=== PATIENT | female | born 1945 | race Caucasian/White ===

== ENCOUNTER 2018-04-21 13:31 | Inpatient (IN) | payer MEDICARE, BC ==
[~2018-04-21] VITALS: Ht 167.6 cm; Wt 123.0 kg
[2018-04-21] VITALS (10 sets, daily range): BP systolic 112–143; BP diastolic 49–69
[~2018-04-21 13:31] MED LIST: ULTRAM50 M1 PO
[2018-04-21] MEDS ORDERED: ARTIFI TEAR1 OU (13:56)
[2018-04-21] MEDS ORDERED: CARVEDILOL6.25 MG PO (13:57)
[2018-04-21] MEDS ORDERED: CINNAMON500 MG PO (13:58)
[2018-04-21] MEDS ORDERED: FISH OIL1000 MG PO (13:58)
[2018-04-21 14:00] LABS: HEMATOCRIT 41.2 % (37.0-47.0); HEMOGLOBIN 13.4 g/dl (12.0-16.0); IMMATURE GRANULOCYTES 0.3 % (0.0-5.0); MEAN CELL VOLUME 97.9 fL CALC (80.0-100.0); MEAN CORPUSCULAR HGB 31.8 pG CALC (26.0-32.0); MEAN CORPUSCULAR HGB CONC 32.5 g/L CALC (32.0-36.0); NEUT# 2.73 thou/uL (2.00-7.15); RED BLOOD COUNT 4.21 mill/uL (4.20-5.60); RED CELL DISTRI WIDTH 13.9 % (11.5-15.5)
[2018-04-21] MEDS ORDERED: FLONASE AL50 MCG/ACT NAB (14:00)
[2018-04-21] MEDS ORDERED: OMEPRAZOLE10 MG PO (14:00)
[2018-04-21] MEDS ORDERED: MULTI VIT PO (14:01)
[2018-04-21] MEDS ORDERED: SIMVASTATIN20 MG PO (14:01)
[2018-04-21] MEDS ORDERED: VITAMIN B-12500 MCG PO (14:02)
[2018-04-21] MEDS ORDERED: MECLIZINE25 MG PO (14:02)
[2018-04-21] MEDS ORDERED: FUROSEMIDE20 MG PO (14:03)
[2018-04-21] MEDS ORDERED: VITAMIN D PO (14:03)
[2018-04-21] MEDS ORDERED: KLOR-CON 1010 MEQ PO (14:04)
[2018-04-21] MEDS ORDERED: Levaquin PO (14:04)
[2018-04-21 14:16] LABS: ALBUMIN 4.3 g/dL (3.2-5.0); ALKALINE PHOSPHATASE 99 u/l (38-126); ANION GAP 15 (6-22 (CALC)); BILIRUBIN, TOTAL 0.8 mg/dL (0.0-1.4); BUN 16 mg/dL (8-23); BUN/CREATININE RATIO 22 (12-20 (CALC)); CARBON DIOXIDE 24 mmol/l (22-30); CHLORIDE 107 mmol/l (95-108); CREATININE 0.7 mg/dL (0.5-1.0); GFR > 60 ML/MIN (>=60 (CALC)); GFR FOR AFR.AMER. > 60 ML/MIN (>=60 (CALC)); POTASSIUM 3.9 mmol/l (3.5-5.1); SGOT/AST 23 u/l (9-36); SODIUM 142 mmol/l (137-146); TOTAL PROTEIN 7.8 g/dL (6.3-8.2)
[2018-04-21 14:19] LABS: D-DIMER 1.91 mg/L (0.19-0.60); PROTHROMBIN TIME 10.6 SECONDS (9.0-12.5)
[2018-04-21 16:44] LABS: URINE BILIRUBIN - DIPSTICK NEGATIVE (NEGATIVE); URINE BLOOD DIPSTICK NEGATIVE (NEGATIVE); URINE COLOR YELLOW; URINE GLUCOSE - DIPSTICK NEGATIVE (NEGATIVE); URINE KETONE TRACE mg/dL (NEGATIVE); URINE LEUK ESTERASE NEGATIVE (Negative); URINE NITRITE - DIPSTICK NEGATIVE (Negative); URINE PH 6.5 (4.5-8.0); URINE PROTEIN - DIPSTICK TRACE mg/dL (NEG-TRACE); URINE SPECIFIC GRAVITY >=1.030; URINE UROBILINOGEN - DIPSTICK 0.2 E.U./dL (0.2)
[2018-04-21 16:45] LABS: URINE CLARITY CLEAR
[2018-04-22] VITALS (22 sets, daily range): BP systolic 91–138; BP diastolic 44–75
[2018-04-22 03:37] LABS: HEMATOCRIT 38.6 % (37.0-47.0); HEMOGLOBIN 12.6 g/dl (12.0-16.0); IMMATURE GRANULOCYTES 0.2 % (0.0-5.0); MEAN CELL VOLUME 98.2 fL CALC (80.0-100.0); MEAN CORPUSCULAR HGB 32.1 pG CALC (26.0-32.0); MEAN CORPUSCULAR HGB CONC 32.6 g/L CALC (32.0-36.0); NEUT# 2.07 thou/uL (2.00-7.15); RED BLOOD COUNT 3.93 mill/uL (4.20-5.60); RED CELL DISTRI WIDTH 13.9 % (11.5-15.5)
[2018-04-22 03:57] LABS: ALKALINE PHOSPHATASE 99 u/l (38-126); ANION GAP 15 (6-22 (CALC)); BILIRUBIN, TOTAL 1.1 mg/dL (0.0-1.4); BUN 14 mg/dL (8-23); BUN/CREATININE RATIO 23 (12-20 (CALC)); CARBON DIOXIDE 25 mmol/l (22-30); CHLORIDE 103 mmol/l (95-108); CHOLESTEROL HDL RATIO 3.3 (<4.4 (CALC)); CREATININE 0.6 mg/dL (0.5-1.0); GFR > 60 ML/MIN (>=60 (CALC)); GFR FOR AFR.AMER. > 60 ML/MIN (>=60 (CALC)); MAGNESIUM 1.7 mg/dL (1.6-2.3); POTASSIUM 3.6 mmol/l (3.5-5.1); SGOT/AST 24 u/l (9-36); SODIUM 140 mmol/l (137-146)
[2018-04-23] VITALS (26 sets, daily range): BP systolic 90–126; BP diastolic 40–72
[2018-04-23 05:15] LABS: HEMATOCRIT 44.2 % (37.0-47.0); HEMOGLOBIN 14.3 g/dl (12.0-16.0); IMMATURE GRANULOCYTES 0.2 % (0.0-5.0); MEAN CELL VOLUME 96.9 fL CALC (80.0-100.0); MEAN CORPUSCULAR HGB 31.4 pG CALC (26.0-32.0); MEAN CORPUSCULAR HGB CONC 32.4 g/L CALC (32.0-36.0); NEUT# 2.73 thou/uL (2.00-7.15); RED BLOOD COUNT 4.56 mill/uL (4.20-5.60); RED CELL DISTRI WIDTH 13.6 % (11.5-15.5)
[2018-04-23 05:44] LABS: ALBUMIN 3.8 g/dL (3.2-5.0); ALKALINE PHOSPHATASE 94 u/l (38-126); ANION GAP 13 (6-22 (CALC)); BILIRUBIN, TOTAL 0.8 mg/dL (0.0-1.4); BUN 17 mg/dL (8-23); BUN/CREATININE RATIO 25 (12-20 (CALC)); CARBON DIOXIDE 23 mmol/l (22-30); CHLORIDE 106 mmol/l (95-108); CREATININE 0.7 mg/dL (0.5-1.0); GFR > 60 ML/MIN (>=60 (CALC)); GFR FOR AFR.AMER. > 60 ML/MIN (>=60 (CALC)); MAGNESIUM 1.8 mg/dL (1.6-2.3); POTASSIUM 3.8 mmol/l (3.5-5.1); SGOT/AST 19 u/l (9-36); SODIUM 138 mmol/l (137-146); TOTAL PROTEIN 6.8 g/dL (6.3-8.2)
[2018-04-24] VITALS (11 sets, daily range): BP systolic 97–143; BP diastolic 53–80
[2018-04-25] VITALS (7 sets, daily range): BP systolic 98–133; BP diastolic 54–77
[2018-04-26 04:00] VITALS: BP 131/65
[2018-04-26 07:53] VITALS: BP 104/65
[2018-04-26 10:55] VITALS: BP 136/66
[2018-04-26] MEDS ORDERED: ELIQUIS2.5 MG PO (12:06)
[2018-04-26] MEDS ORDERED: ALDACTONE25 MG PO (12:08)
[2018-04-26] MEDS ORDERED: LOPRESSOR 550 MG/TAB PO (12:09)
[2018-04-26] MEDS ORDERED: DIGITEK0.25 M1 PO (12:10)
== END 2018-04-26 13:15 | disposition home or self-care (01) | DRG 291 ==
LOC: ED 13:31 → ED-I 15:18 → ED 15:54 → MS2 15:55 → ICU 15:55 → MS2 04-24 12:30
PROVIDERS: Emergency Medicine; ADMIT Internal Medicine Nephrology; ATTEND Internal Medicine Nephrology
PROC: 0T9B70Z Drainage of Bladder with Drainage Device, Via Natural or Artificial Opening (ICD-10-PCS; principal; 2018-04-21)
DX: I11.0 Hypertensive heart disease with heart failure (principal); I50.21 Acute systolic (congestive) heart failure; Z68.41 Body mass index [BMI] 40.0-44.9, adult; I48.0 Paroxysmal atrial fibrillation; E66.9 Obesity, unspecified; N32.81 Overactive bladder; E78.5 Hyperlipidemia, unspecified; G47.33 Obstructive sleep apnea (adult) (pediatric); F40.240 Claustrophobia; E53.8 Deficiency of other specified B group vitamins; I45.10 Unspecified right bundle-branch block; K21.9 Gastro-esophageal reflux disease without esophagitis; Z96.652 Presence of left artificial knee joint; Z82.49 Family history of ischemic heart disease and other diseases of the circulatory system
CPT/HCPCS: J1160; J1650; Q9967

== ENCOUNTER 2018-05-07 10:32 | Emergency (ER) | payer BC ==
[~2018-05-07] VITALS: Ht 167.6 cm; Wt 123.0 kg
[~2018-05-07 10:32] MED LIST changes: +ALDACTONE25 MG PO; +ARTIFI TEAR1 OU; +CARVEDILOL6.25 MG PO; +CINNAMON500 MG PO; +DIGITEK0.25 M1 PO; +ELIQUIS2.5 MG PO; +FISH OIL1000 MG PO; +FLONASE AL50 MCG/ACT NAB; +FUROSEMIDE20 MG PO; +KLOR-CON 1010 MEQ PO; +LOPRESSOR 550 MG/TAB PO; +Levaquin PO; +MECLIZINE25 MG PO; +MULTI VIT PO; +OMEPRAZOLE10 MG PO; +SIMVASTATIN20 MG PO; +VITAMIN B-12500 MCG PO; +VITAMIN D PO
[2018-05-07] MEDS ORDERED: DIGITEK0.25 M1 PO (10:54)
[2018-05-07] MEDS ORDERED: LOPRESSOR25 M1 PO (10:54)
[2018-05-07] MEDS ORDERED: SPIRONOLACT25 MG PO ×2 (10:54→11:06)
[2018-05-07] MEDS ORDERED: SIMVASTATIN40 MG PO (11:08)
[2018-05-07] MEDS ORDERED: OMEPRAZOLE20 M2 PO (11:08)
[2018-05-07 11:15] VITALS: BP 153/73
== END 2018-05-07 11:15 | disposition home or self-care (01) | DRG 951 ==
LOC: ED 10:32
DX: Z76.0 Encounter for issue of repeat prescription (principal); I48.91 Unspecified atrial fibrillation; I10 Essential (primary) hypertension

== ENCOUNTER 2018-08-21 16:41 | Emergency (ER) | payer BC ==
[~2018-08-21] VITALS: Ht 167.6 cm; Wt 131.8 kg
[~2018-08-21 16:41] MED LIST changes: +LOPRESSOR25 M1 PO; +OMEPRAZOLE20 M2 PO; +SIMVASTATIN40 MG PO; +SPIRONOLACT25 MG PO
[2018-08-21] MEDS ORDERED: ATENOLOL100 M1 PO (17:11)
[2018-08-21] MEDS ORDERED: TOLTERODINE TART2 MG PO (17:12)
[2018-08-21 17:22] LABS: HEMATOCRIT 40.4 % (37.0-47.0); HEMOGLOBIN 12.6 g/dl (12.0-16.0); IMMATURE GRANULOCYTES 0.2 % (0.0-5.0); MEAN CELL VOLUME 99.3 fL CALC (80.0-100.0); MEAN CORPUSCULAR HGB CONC 31.2 g/L CALC (32.0-36.0); NEUT# 3.25 thou/uL (2.00-7.15); RED BLOOD COUNT 4.07 mill/uL (4.20-5.60); RED CELL DISTRI WIDTH 13.8 % (11.5-15.5)
[2018-08-21 17:34] LABS: ALBUMIN 4.1 g/dL (3.2-5.0); ALKALINE PHOSPHATASE 125 u/l (38-126); ANION GAP 14 (6-22 (CALC)); BILIRUBIN, TOTAL 0.6 mg/dL (0.0-1.4); BUN 14 mg/dL (8-23); BUN/CREATININE RATIO 19 (12-20 (CALC)); CARBON DIOXIDE 25 mmol/l (22-30); CHLORIDE 106 mmol/l (95-108); CREATININE 0.8 mg/dL (0.5-1.0); GFR > 60 ML/MIN (>=60 (CALC)); GFR FOR AFR.AMER. > 60 ML/MIN (>=60 (CALC)); SGOT/AST 22 u/l (9-36); SODIUM 142 mmol/l (137-146); TOTAL PROTEIN 7.1 g/dL (6.3-8.2)
[2018-08-21 17:46] LABS: MYOGLOBIN 36 ng/mL (0 - 62)
[2018-08-21 19:58] LABS: URINE BILIRUBIN - DIPSTICK NEGATIVE (NEGATIVE); URINE BLOOD DIPSTICK NEGATIVE (NEGATIVE); URINE COLOR YELLOW; URINE GLUCOSE - DIPSTICK NEGATIVE (NEGATIVE); URINE KETONE NEGATIVE (NEGATIVE); URINE LEUK ESTERASE NEGATIVE (NEGATIVE); URINE NITRITE - DIPSTICK NEGATIVE (Negative); URINE PH 6.5 (4.5-8.0); URINE PROTEIN - DIPSTICK NEGATIVE (NEG-TRACE); URINE UROBILINOGEN - DIPSTICK 0.2 E.U./dL (0.2)
[2018-08-21] MEDS ORDERED: COREG CR20 MG PO (20:11)
[2018-08-21 20:14] VITALS: BP 134/77
== END 2018-08-21 20:33 | disposition home or self-care (01) | DRG 310 ==
LOC: ED 16:41
PROVIDERS: Emergency Medicine
DX: R00.2 Palpitations (principal); R53.83 Other fatigue; I11.0 Hypertensive heart disease with heart failure; I50.9 Heart failure, unspecified; I48.91 Unspecified atrial fibrillation

== ENCOUNTER 2018-10-12 15:09 | Emergency (ER) | payer BC ==
[~2018-10-12] VITALS: Ht 167.6 cm; Wt 127.7 kg
[~2018-10-12 15:09] MED LIST changes: +ATENOLOL100 M1 PO; +COREG CR20 MG PO; +TOLTERODINE TART2 MG PO
[2018-10-12 15:28] LABS: HEMATOCRIT 39.2 % (37.0-47.0); HEMOGLOBIN 12.7 g/dl (12.0-16.0); IMMATURE GRANULOCYTES 0.4 % (0.0-5.0); MEAN CELL VOLUME 97.8 fL CALC (80.0-100.0); MEAN CORPUSCULAR HGB 31.7 pG CALC (26.0-32.0); MEAN CORPUSCULAR HGB CONC 32.4 g/L CALC (32.0-36.0); NEUT# 2.57 thou/uL (2.00-7.15); RED BLOOD COUNT 4.01 mill/uL (4.20-5.60); RED CELL DISTRI WIDTH 13.2 % (11.5-15.5)
[2018-10-12] MEDS ORDERED: CARVEDILOL25 MG PO (15:36)
[2018-10-12 15:45] LABS: ALBUMIN 4.2 g/dL (3.2-5.0); ALKALINE PHOSPHATASE 125 u/l (38-126); ANION GAP 16 (6-22 (CALC)); BILIRUBIN, TOTAL 0.6 mg/dL (0.0-1.4); BUN 12 mg/dL (8-23); BUN/CREATININE RATIO 15 (12-20 (CALC)); CARBON DIOXIDE 24 mmol/l (22-30); CHLORIDE 105 mmol/l (95-108); CREATININE 0.8 mg/dL (0.5-1.0); GFR > 60 ML/MIN (>=60 (CALC)); GFR FOR AFR.AMER. > 60 ML/MIN (>=60 (CALC)); POTASSIUM 4.3 mmol/l (3.5-5.1); SGOT/AST 26 u/l (9-36); SODIUM 141 mmol/l (137-146); TOTAL PROTEIN 7.2 g/dL (6.3-8.2)
[2018-10-12] MEDS ORDERED: SPIRONOLACT25 MG PO (15:48)
[2018-10-12] MEDS ORDERED: ELIQUIS5 MG PO (15:54)
[2018-10-12] MEDS ORDERED: LORATADINE10 M2 PO (15:56)
[2018-10-12 17:12] VITALS: BP 132/57
[2018-10-12 17:26] LABS: ACT PARTIAL THROMBO TIME 28.4 SECONDS (20.0-32.5); INTERNATIONAL NORMALIZED RATIO 1.1 RATIO (0.7-1.3); PROTHROMBIN TIME 11.4 SECONDS (9.0-12.5)
== END 2018-10-12 17:12 | disposition short-term general hospital (02) | DRG 65 ==
LOC: ED 15:09
PROVIDERS: Family Medicine
DX: I63.9 Cerebral infarction, unspecified (principal); G81.91 Hemiplegia, unspecified affecting right dominant side; R74.8 Abnormal levels of other serum enzymes; I48.0 Paroxysmal atrial fibrillation; I10 Essential (primary) hypertension; Z79.02 Long term (current) use of antithrombotics/antiplatelets
CPT/HCPCS: Q9967